=== PATIENT | male | born 1945 | race Caucasian/White ===

== ENCOUNTER 2020-06-21 17:42 | Emergency (ER) | payer MEDICARE, MEDICAID ==
[~2020-06-21] VITALS: Ht 188 cm; Wt 121.4 kg
[~2020-06-21 17:42] MED LIST: ALBU0.63 NEB; AMLO-150 PO; AMOX-367 PO; ASPI-515 PO; ATOR-2 PO; BRIM10DR15 EACHEYE; CEPH-368 PO; DORZ10DR27 EACHEYE; DOXY100T PO; ENAL20TA9 PO; FLUC100T PO; FLUT1BLS3 IH; FURO20TA3 PO; FURO40TA6 PO; GABA600T7 PO; GLIP5TAB22 PO; HYDR-3240 PO; IPRA15SP NAS; LATA7.5D EACHEYE; LEVO25TA4 PO; LEVO50TA PO; MAGN400T26 PO; MAGN70TA2 PO; MELA3TAB31 PO; METF500T27 PO; METO200T47 PO; METO25TA91 PO; POTA20PA31 PO; SITA50TA PO; SULF1TAB24 PO; TIMO5DRO28 EACHEYE
[2020-06-21 18:42] LABS: ALANINE AMINOTRANSFERASE 337 U/L (12-78); ALBUMIN 3.5 g/dL (3.4-5.0); ANION GAP 6 mmol/L (5-15); CALCIUM 9.1 mg/dL (8.5-10.1); CHLORIDE 103 mmol/L (98-107); CREATININE 2.84 mg/dL (0.7-1.3)
[2020-06-21 18:44] LABS: ALKALINE PHOSPHATASE 412 U/L (45-117); BASOPHILS % (AUTO) 1 % (0-1); BILIRUBIN,TOTAL 3.3 mg/dL (0.2-1.0); EOSINOPHILS % (AUTO) 3 % (1-7); LYMPHOCYTES % (AUTO) 26 % (22-44); MEAN CORPUSCULAR HEMOGLOBIN 32.1 pg (27.5-34.5); MEAN CORPUSCULAR HGB CONC 33.1 g/dL (33.2-36.2); MEAN PLATELET VOLUME 10.5 fL (7.4-10.4); MONOCYTES % (AUTO) 8 % (2-9); NEUTROPHILS % (AUTO) 62 % (42-75); PLATELET COUNT 153 x10^3/uL (130-400); RED BLOOD COUNT 3.48 x10^6/uL (4.38-5.82); RED CELL DISTRIBUTION WIDTH 13.4 % (9.4-14.8); TOTAL PROTEIN 7.2 g/dL (6.4-8.2)
[2020-06-21 18:48] LABS: MD NO
[2020-06-21 19:56] LABS: INTERNATIONAL NORMALIZED RATIO 1.06 (0.93-1.1); PROTHROMBIN TIME 11.2 Seconds (9.6-11.5)
[2020-06-21] MEDS ORDERED: SODIUM CHLORIDE 0.9% 1,000 ML IV ONE (20:00)
[2020-06-21] MEDS ORDERED: SODIUM CHLORIDE FLUSH 10ML SYR IVF ONE (20:00)
[2020-06-21 20:56] LABS: MICROSCOPIC INDICATED
--- NOTE | 2020-06-21 21:12 | NUR ---
PT RESTING IN BED, PT ON MONITOR WITH PT FAMILY AT PT SIDE. PT VSS. PT DENIED ANY WANTS OR NEEDS AT THIS TIME.
[2020-06-21] MEDS ORDERED: SODIUM CHLORIDE 0.9% 1,000 ML IV SCH (22:30)
[2020-06-21] MEDS ORDERED: MELATONIN 3 MG TABLET PO SCH (22:30)
[2020-06-21] MEDS ORDERED: BISACODYL 10 MG SUPP PR PRN (22:30)
[2020-06-21] MEDS ORDERED: morphine SULFATE 10 MG/ML, 1ML IVPush PRN (22:30)
[2020-06-21] MEDS ORDERED: ONDANSETRON ODT 4 MG PO PRN (22:30)
[2020-06-21] MEDS ORDERED: TEMPLATE NON-FORMULARY MED. (Gabapentin** 300 MG) PO SCH (22:30)
[2020-06-21] MEDS ORDERED: POLYETHYLENE GLYCOL 17 GM PACKET PO PRN (22:30)
[2020-06-21] MEDS ORDERED: DIPHENHYDRAMINE 25 MG CAPSULE PO PRN (22:30)
[2020-06-21] MEDS ORDERED: hydrALAzine 20 MG/ML, 1ML IVPush PRN (22:30)
[2020-06-21] MEDS ORDERED: DIPHENHYDRAMINE 25 MG CAPSULE ONE (23:23)
[2020-06-21] MEDS ORDERED: MELATONIN 5 MG TABLET ONE (23:23)
[2020-06-21] MEDS ORDERED: GABAPENTIN 300 MG CAPSULE ONE (23:23)
--- NOTE | 2020-06-22 00:36 | NUR ---
PT PLACED IN FLOOR BED
[2020-06-22 00:56] LABS: CHLORIDE,URINE RANDOM 63 mmol/L; POTASSIUM,URINE RANDOM 34 mmol/L; SODIUM,URINE RANDOM 59 mmol/L
--- NOTE | 2020-06-22 00:57 | NUR ---
Report from Akiko Duff.
--- NOTE | 2020-06-22 01:10 | NUR ---
First contact with patient, pt sleeping, RR equal and unlabored. On pulse ox, b/p. IVF infusing on dial a flow. Call metz in reach of pt. Will continue to monitor, pt waiting for admission bed.
--- NOTE | 2020-06-22 03:09 | NUR ---
Sleeping, RR equal and unlabored. Will continue to monitor.
--- NOTE | 2020-06-22 04:04 | NUR ---
report received from sharon rivera
--- NOTE | 2020-06-22 04:18 | NUR ---
pt sleeping in hospital bed, resp even and unlabored
[2020-06-22 05:26] LABS: BASOPHILS % (AUTO) 1 % (0-1); EOSINOPHILS % (AUTO) 5 % (1-7); LYMPHOCYTES % (AUTO) 28 % (22-44); MEAN CORPUSCULAR HEMOGLOBIN 32.6 pg (27.5-34.5); MEAN CORPUSCULAR HGB CONC 33.7 g/dL (33.2-36.2); MEAN PLATELET VOLUME 10.7 fL (7.4-10.4); MONOCYTES % (AUTO) 8 % (2-9); NEUTROPHILS % (AUTO) 58 % (42-75); PLATELET COUNT 126 x10^3/uL (130-400); RED BLOOD COUNT 3.07 x10^6/uL (4.38-5.82); RED CELL DISTRIBUTION WIDTH 13.4 % (9.4-14.8)
[2020-06-22 05:27] LABS: MD NO
[2020-06-22 05:34] LABS: CHLORIDE 106 mmol/L (98-107)
--- NOTE | 2020-06-22 05:35 | NUR ---
pt sleeping, resp even and unlabored
[2020-06-22 05:41] LABS: ALANINE AMINOTRANSFERASE 269 U/L (12-78); ALBUMIN 3.1 g/dL (3.4-5.0); ALKALINE PHOSPHATASE 357 U/L (45-117); ANION GAP 7 mmol/L (5-15); BILIRUBIN,TOTAL 2.4 mg/dL (0.2-1.0); CALCIUM 8.6 mg/dL (8.5-10.1); CREATININE 2.71 mg/dL (0.7-1.3); TOTAL PROTEIN 6.3 g/dL (6.4-8.2)
[2020-06-22] MEDS ORDERED: ASPIRIN 81 MG TABLET EC PO SCH (06:00)
[2020-06-22] MEDS ORDERED: LEVOTHYROXINE 50 MCG TABLET PO SCH (06:00)
--- NOTE | 2020-06-22 07:07 | NUR ---
report given to chung rivera
--- NOTE | 2020-06-22 07:30 | NUR ---
ASSUMED CARE. NO COMPLAINTS AT THIS TIME
--- NOTE | 2020-06-22 08:43 | NUR ---
OFF FLOOR TO MRI
[2020-06-22] MEDS ORDERED: AMLODIPINE 5 MG TABLET PO SCH (09:00)
[2020-06-22] MEDS ORDERED: SENNA/DOCUSATE TABLET PO SCH (09:00)
[2020-06-22] MEDS ORDERED: TEMPLATE NON-FORMULARY MED. (Fluticasone/Umeclidin/Vilanter (Trelegy Ellipta 100-62.5-25 IH SCH (09:00)
[2020-06-22] MEDS ORDERED: MAGNESIUM CHLORIDE 70MG TAB DR PO SCH (09:00)
[2020-06-22] MEDS ORDERED: MAGNESIUM OXIDE 400 MG PO SCH (09:00)
[2020-06-22] MEDS ORDERED: IPRATROPIUM NASAL 0.03%, 30ML NAS SCH (09:00)
[2020-06-22] MEDS ORDERED: METOPROLOL SUCCINATE 25 MG TAB.ER.24H PO SCH (09:00)
[2020-06-22] MEDS ORDERED: TIOTROPIUM BROMIDE 18 MCG/INH INH SCH (09:00)
[2020-06-22] MEDS ORDERED: FLUTICASONE/VILANTEROL 100-25MCG/INH INH SCH (09:00)
--- NOTE | 2020-06-22 09:00 | NUR ---
REPORT TO MAKEDA JJ
[2020-06-22] MEDS ORDERED: AMLODIPINE 5 MG TABLET ONE (09:20)
[2020-06-22] MEDS ORDERED: GABAPENTIN 300 MG CAPSULE ONE ×2 (09:20→17:34)
[2020-06-22] MEDS ORDERED: ASPIRIN 81 MG TABLET EC ONE (09:20)
[2020-06-22] MEDS ORDERED: SENNA/DOCUSATE TABLET ONE (09:20)
[2020-06-22] MEDS: GABAPENTIN 300 MG CAPSULE PO SCH ×2 (09:46→17:38)
[2020-06-22] MEDS ORDERED: DIPHENHYDRAMINE 25 MG CAPSULE ONE (10:23)
[2020-06-22] MEDS ORDERED: MAGNESIUM OXIDE 400 MG TABLET PO SCH (10:38)
[2020-06-22] MEDS ORDERED: ALBUTEROL HFA 90 MCG/SPRAY INH PRN (12:30)
[2020-06-22 13:59] VITALS: BP 113/44
--- NOTE | 2020-06-22 15:06 | NUR ---
BREAK RN- MEAL PROVIDED.
--- NOTE | 2020-06-22 19:30 | NUR ---
PT AND DTR STATE THEY ARE GOING TO FOLLOW UP WITH PCP AND ARE UNWILLING TO WAIT FOR DC PAPERWORK. IV REMOVED, SITE CDI. SUP UPDATED.
[2020-06-22] MEDS ORDERED: ATORVASTATIN 80 MG TABLET PO SCH (21:00)
== END 2020-06-22 19:57 | disposition home or self-care (01) ==
LOC: ED 20:11 → EDIP 22:43 → UNDOADMIN 22:43 → ED 06-22 19:57
DX: K85.90 Acute pancreatitis without necrosis or infection, unspecified (principal); K80.20 Calculus of gallbladder without cholecystitis without obstruction; Z20.828 Contact with and (suspected) exposure to other viral communicable diseases; I12.9 Hypertensive chronic kidney disease with stage 1 through stage 4 chronic kidney disease, or unspecified chronic kidney disease; N18.9 Chronic kidney disease, unspecified; E11.22 Type 2 diabetes mellitus with diabetic chronic kidney disease; R94.5 Abnormal results of liver function studies; I25.2 Old myocardial infarction; Z95.1 Presence of aortocoronary bypass graft
CPT/HCPCS: 36415; 74181; 76700; 80053; 81001; 82436; 82570; 83036; 83690; 84133; 84300; 85025; 85610; 87086; 87635; 96360; 96361; 99285; J7030; Q0163

== ENCOUNTER 2020-07-04 17:57 | Emergency (ER) | payer MEDICARE, MEDICAID ==
[~2020-07-04] VITALS: Ht 188 cm; Wt 111.8 kg
--- NOTE | 2020-07-04 18:57 | NUR ---
RODOLFO RN: PT BROUGHT BACK FOR RE-VITALS
[2020-07-04] MEDS ORDERED: SODIUM CHLORIDE FLUSH 10ML SYR IVF ONE (19:00)
[2020-07-04 19:31] LABS: BASOPHILS % (AUTO) 0 % (0-1); EOSINOPHILS % (AUTO) 4 % (1-7); LYMPHOCYTES % (AUTO) 28 % (22-44); MEAN CORPUSCULAR HEMOGLOBIN 32.2 pg (27.5-34.5); MEAN CORPUSCULAR HGB CONC 33.8 g/dL (33.2-36.2); MEAN PLATELET VOLUME 10.5 fL (7.4-10.4); MONOCYTES % (AUTO) 7 % (2-9); NEUTROPHILS % (AUTO) 61 % (42-75); PLATELET COUNT 169 x10^3/uL (130-400); RED BLOOD COUNT 3.65 x10^6/uL (4.38-5.82); RED CELL DISTRIBUTION WIDTH 12.8 % (9.4-14.8)
[2020-07-04 19:32] LABS: MD NO
[2020-07-04 19:41] LABS: ALBUMIN 3.6 g/dL (3.4-5.0); ANION GAP 5 mmol/L (5-15); CALCIUM 9.4 mg/dL (8.5-10.1); CHLORIDE 103 mmol/L (98-107)
[2020-07-04 19:46] LABS: ALANINE AMINOTRANSFERASE 26 U/L (12-78); ALKALINE PHOSPHATASE 165 U/L (45-117); BILIRUBIN,TOTAL 0.7 mg/dL (0.2-1.0); CREATININE 2.31 mg/dL (0.7-1.3); TOTAL PROTEIN 7.5 g/dL (6.4-8.2)
[2020-07-04 19:53] LABS: PROTHROMBIN TIME 10.6 Seconds (9.6-11.5)
[2020-07-04 20:56] VITALS: BP 134/68
--- NOTE | 2020-07-04 21:06 | NUR ---
ALL RESULTS ARE BACK AT THIS TIME. CHART UP FOR RECHECK.
== END 2020-07-04 21:55 | disposition home or self-care (01) ==
LOC: ED 19:30
DX: K80.20 Calculus of gallbladder without cholecystitis without obstruction (principal); R10.31 Right lower quadrant pain; R10.84 Generalized abdominal pain; I10 Essential (primary) hypertension; E11.9 Type 2 diabetes mellitus without complications; I25.2 Old myocardial infarction; I50.9 Heart failure, unspecified; I11.0 Hypertensive heart disease with heart failure; E16.2 Hypoglycemia, unspecified; Z87.891 Personal history of nicotine dependence
CPT/HCPCS: 36415; 76700; 80053; 83690; 85025; 85610; 85730; 99284